=== PATIENT | female | born 1995 | race African-American/Black ===

== ENCOUNTER 2016-09-20 22:33 | Emergency (ER) | payer SELFPAY ==
[~2016-09-20] VITALS: Ht 170.2 cm; Wt 74.4 kg
[~2016-09-20 22:33] MED LIST: AMOXICILLIN500 MG PO; CIPRO500 MG OR; CIPRO500 MG PO; CORTISPORIN OP7.5 ML OP; IRON325 MG PO; NO CURRENT MEDS; PRE-NATAL PO; TAM75CAP PO; TYLENOL325 MG OR; ULTRAM50 M1 PO
[2016-09-21] MEDS ORDERED: ULTRAM50 M1 PO (00:31)
[2016-09-21 00:52] VITALS: BP 131/78
== END 2016-09-21 00:52 | disposition home or self-care (01) | DRG 914 ==
LOC: ED 22:33
PROC: 2W3KX1Z Immobilization of Left Finger using Splint (ICD-10-PCS; principal; 2016-09-20)
DX: S69.92XA Unspecified injury of left wrist, hand and finger(s), initial encounter (principal); W18.39XA Other fall on same level, initial encounter; Y93.89 Activity, other specified; Y92.009 Unspecified place in unspecified non-institutional (private) residence as the place of occurrence of the external cause

== ENCOUNTER 2017-05-19 21:37 | Emergency (ER) | payer SELFPAY ==
[~2017-05-19] VITALS: Ht 170.2 cm; Wt 66.0 kg
[2017-05-19 22:20] LABS: URINE BILIRUBIN - DIPSTICK NEGATIVE (NEGATIVE); URINE BLOOD DIPSTICK LARGE (NEGATIVE); URINE COLOR YELLOW; URINE GLUCOSE - DIPSTICK NEGATIVE (NEGATIVE); URINE KETONE NEGATIVE (NEGATIVE); URINE NITRITE - DIPSTICK NEGATIVE (Negative); URINE PROTEIN - DIPSTICK 100 mg/dL (NEG-TRACE); URINE SPECIFIC GRAVITY 1.025; URINE UROBILINOGEN - DIPSTICK 0.2 E.U./dL (0.2)
[2017-05-19 22:22] LABS: URINE CLARITY CLOUDY; URINE LEUK ESTERASE MODERATE (NEGATIVE)
[2017-05-19 22:33] LABS: URINE WBC 50-100 WBC/hpf (0-5)
[2017-05-19 22:34] LABS: URINE RENAL EPITHELIAL CELLS FEW hpf
[2017-05-19] MEDS ORDERED: CIPROFLOXACN500 MG PO (22:47)
[2017-05-19] MEDS ORDERED: PYRIDIUM200 MG PO (22:47)
[2017-05-19 23:10] VITALS: BP 132/63
== END 2017-05-19 23:32 | disposition home or self-care (01) | DRG 690 ==
LOC: ED 21:37
PROVIDERS: Emergency Medicine
DX: N39.0 Urinary tract infection, site not specified (principal); B96.20 Unspecified Escherichia coli [E. coli] as the cause of diseases classified elsewhere; R10.2 Pelvic and perineal pain; R30.0 Dysuria

== ENCOUNTER 2017-09-10 04:48 | Emergency (ER) | payer OTHER ==
[~2017-09-10] VITALS: Ht 170.2 cm; Wt 75.6 kg
[~2017-09-10 04:48] MED LIST changes: +CIPROFLOXACN500 MG PO; +PYRIDIUM200 MG PO
[2017-09-10 05:36] LABS: URINE BILIRUBIN - DIPSTICK NEGATIVE (NEGATIVE); URINE BLOOD DIPSTICK NEGATIVE (NEGATIVE); URINE COLOR YELLOW; URINE GLUCOSE - DIPSTICK NEGATIVE (NEGATIVE); URINE KETONE NEGATIVE (NEGATIVE); URINE LEUK ESTERASE NEGATIVE (NEGATIVE); URINE NITRITE - DIPSTICK NEGATIVE (Negative); URINE PROTEIN - DIPSTICK NEGATIVE (NEG-TRACE)
[2017-09-10 05:37] LABS: URINE CLARITY SL CLOUDY
[2017-09-10] MEDS ORDERED: NAPROSYN500 MG PO (06:26)
[2017-09-10 06:39] VITALS: BP 115/70
== END 2017-09-10 06:40 | disposition home or self-care (01) | DRG 552 ==
LOC: ED 04:48
PROVIDERS: Emergency Medicine
DX: S33.5XXA Sprain of ligaments of lumbar spine, initial encounter (principal); S43.402A Unspecified sprain of left shoulder joint, initial encounter; V89.2XXA Person injured in unspecified motor-vehicle accident, traffic, initial encounter

== ENCOUNTER 2018-02-18 23:01 | Emergency (ER) | payer BC ==
[~2018-02-18] VITALS: Ht 170.2 cm; Wt 70.0 kg
[~2018-02-18 23:01] MED LIST changes: +NAPROSYN500 MG PO
[2018-02-18 23:51] LABS: HEMATOCRIT 35.7 % (37.0-47.0); HEMOGLOBIN 11.6 g/dl (12.0-16.0); IMMATURE GRANULOCYTES 0.2 % (0.0-5.0); MEAN CELL VOLUME 92.5 fL CALC (80.0-100.0); MEAN CORPUSCULAR HGB 30.1 pG CALC (26.0-32.0); MEAN CORPUSCULAR HGB CONC 32.5 g/L CALC (32.0-36.0); NEUT# 1.73 thou/uL (2.00-7.15); RED BLOOD COUNT 3.86 mill/uL (4.20-5.60); RED CELL DISTRI WIDTH 12.1 % (11.5-15.5)
[2018-02-18 23:53] LABS: URINE BILIRUBIN - DIPSTICK NEGATIVE (NEGATIVE); URINE BLOOD DIPSTICK NEGATIVE (NEGATIVE); URINE COLOR YELLOW; URINE GLUCOSE - DIPSTICK NEGATIVE (NEGATIVE); URINE KETONE NEGATIVE (NEGATIVE); URINE NITRITE - DIPSTICK NEGATIVE (Negative); URINE PH 6.5 (4.5-8.0); URINE PROTEIN - DIPSTICK NEGATIVE (NEG-TRACE); URINE UROBILINOGEN - DIPSTICK 0.2 E.U./dL (0.2)
[2018-02-18 23:57] LABS: URINE CLARITY TURBID; URINE LEUK ESTERASE SMALL (NEGATIVE)
[2018-02-18 23:58] LABS: BARBITURATES NEGATIVE (NEGATIVE); COCAINE NEGATIVE (NEGATIVE); METHADONE NEGATIVE (NEGATIVE); OXCYCODONE NEGATIVE (NEGATIVE); TETRAHYDROCANNABIONOL NEGATIVE (NEGATIVE); TRICYLIC ANTIDEPRESSANTS NEGATIVE (NEGATIVE)
[2018-02-19 00:08] LABS: ALBUMIN 4.1 g/dL (3.2-5.0); ANION GAP 14 (6-22 (CALC)); BILIRUBIN, TOTAL 0.6 mg/dL (0.0-1.4); BUN 9 mg/dL (7-17); BUN/CREATININE RATIO 12 (12-20 (CALC)); CARBON DIOXIDE 27 mmol/l (22-30); CHLORIDE 105 mmol/l (95-108); CREATININE 0.7 mg/dL (0.5-1.0); GFR > 60 ML/MIN (>=60 (CALC)); GFR FOR AFR.AMER. > 60 ML/MIN (>=60 (CALC)); POTASSIUM 3.9 mmol/l (3.5-5.1); SGOT/AST 15 u/l (14-36); SGPT/ALT 20 u/l (9-52); SODIUM 142 mmol/l (137-146); TOTAL PROTEIN 7.2 g/dL (6.3-8.2)
[2018-02-19 00:17] LABS: ALKALINE PHOSPHATASE 33 u/l (38-126)
[2018-02-19 00:23] LABS: URINE EPITHELIAL CELLS FEW EPI/hpf (0-FEW); URINE TRICHOMONAS FEW hpf; URINE WBC 50-100 WBC/hpf (0-5)
[2018-02-19 00:25] LABS: URINE BACTERIA MODERATE hpf
[2018-02-19] MEDS ORDERED: ANTIVERT PO (01:08)
[2018-02-19] MEDS ORDERED: METRONIDAZOL500 MG PO (01:08)
[2018-02-19] MEDS ORDERED: CIPROFLOXACN500 MG PO (01:08)
[2018-02-19 01:29] VITALS: BP 114/59
== END 2018-02-19 01:28 | disposition home or self-care (01) | DRG 149 ==
LOC: ED 23:01
PROVIDERS: Emergency Medicine
DX: R42 Dizziness and giddiness (principal); N39.0 Urinary tract infection, site not specified; A59.9 Trichomoniasis, unspecified

== ENCOUNTER 2018-05-26 23:13 | Emergency (ER) | payer BC ==
[~2018-05-26] VITALS: Ht 170.2 cm; Wt 73.0 kg
[~2018-05-26 23:13] MED LIST changes: +ANTIVERT PO; +METRONIDAZOL500 MG PO
[2018-05-27] MEDS ORDERED: AMOXICILLIN500 MG PO (01:32)
[2018-05-27 02:05] VITALS: BP 118/70
== END 2018-05-27 02:05 | disposition home or self-care (01) | DRG 153 ==
LOC: ED 23:13
DX: J02.0 Streptococcal pharyngitis (principal); R11.10 Vomiting, unspecified

== ENCOUNTER 2018-10-16 19:37 | Emergency (ER) | payer OTHER ==
[~2018-10-16] VITALS: Ht 170.2 cm; Wt 73.0 kg
[2018-10-16 22:45] VITALS: BP 124/62
== END 2018-10-16 22:50 | disposition home or self-care (01) | DRG 605 ==
LOC: ED 19:37
DX: S00.03XA Contusion of scalp, initial encounter (principal); R51 Headache; R11.0 Nausea; W22.09XA Striking against other stationary object, initial encounter; Y92.007 Garden or yard of unspecified non-institutional (private) residence as the place of occurrence of the external cause

== ENCOUNTER 2019-08-11 16:29 | Emergency (ER) | payer OTHER ==
[2019-08-11] MEDS ORDERED: PRENATA4 PO (16:53)
[2019-08-11] MEDS ORDERED: ACYCLOVIR800 MG PO (18:00)
[2019-08-11] MEDS ORDERED: BACTROBAN TOP (18:00)
[2019-08-11 18:07] VITALS: BP 128/50
== END 2019-08-11 18:29 | disposition home or self-care (01) ==
LOC: ED 16:29
DX: O98.519 Other viral diseases complicating pregnancy, unspecified trimester (principal); B02.9 Zoster without complications; Z3A.00 Weeks of gestation of pregnancy not specified

== ENCOUNTER 2020-07-07 19:12 | Emergency (ER) | payer OTHER ==
[~2020-07-07] VITALS: Ht 170.2 cm; Wt 97.0 kg
[~2020-07-07 19:12] MED LIST changes: +ACYCLOVIR800 MG PO; +BACTROBAN TOP; +PRENATA4 PO
[2020-07-08] MEDS ORDERED: AMOXICILLIN500 M2 PO (00:42)
[2020-07-08 00:43] VITALS: BP 119/76
== END 2020-07-08 00:43 | disposition home or self-care (01) ==
LOC: ED 19:12
DX: S09.21XA Traumatic rupture of right ear drum, initial encounter (principal); W18.39XA Other fall on same level, initial encounter; Y93.44 Activity, trampolining; Y92.009 Unspecified place in unspecified non-institutional (private) residence as the place of occurrence of the external cause

== ENCOUNTER 2020-10-24 19:15 | Emergency (ER) | payer BC, OTHER ==
[~2020-10-24 19:15] MED LIST changes: +AMOXICILLIN500 M2 PO
[2020-10-24 19:30] VITALS: BP 142/72
[2020-10-24] MEDS ORDERED: MOTRIN400 MG/TAB PO (21:09)
== END 2020-10-24 22:10 | disposition home or self-care (01) | DRG 563 ==
LOC: ED 19:15
DX: S93.601A Unspecified sprain of right foot, initial encounter (principal); S93.401A Sprain of unspecified ligament of right ankle, initial encounter; X50.0XXA Overexertion from strenuous movement or load, initial encounter; Y93.89 Activity, other specified; Y92.002 Bathroom of unspecified non-institutional (private) residence as the place of occurrence of the external cause

== ENCOUNTER 2021-03-02 14:36 | Emergency (ER) | payer BC, OTHER ==
[~2021-03-02] VITALS: Ht 170.2 cm; Wt 100.0 kg
[~2021-03-02 14:36] MED LIST changes: +MOTRIN400 MG/TAB PO
[2021-03-02] MEDS ORDERED: ULTRAM50 MG PO (16:33)
[2021-03-02 16:50] VITALS: BP 125/59
== END 2021-03-02 16:50 | disposition home or self-care (01) | DRG 103 ==
LOC: ED 14:36
DX: G43.909 Migraine, unspecified, not intractable, without status migrainosus (principal); K21.9 Gastro-esophageal reflux disease without esophagitis; Z20.822 Contact with and (suspected) exposure to COVID-19

== ENCOUNTER 2021-06-19 20:55 | Emergency (ER) | payer BC, OTHER ==
[~2021-06-19] VITALS: Ht 170.2 cm; Wt 86.3 kg
[~2021-06-19 20:55] MED LIST changes: +ULTRAM50 MG PO
[2021-06-19] MEDS ORDERED: NAPROXEN500 MG PO (23:01)
[2021-06-19] MEDS ORDERED: AMOXICILLIN500 MG PO (23:01)
[2021-06-20 00:32] VITALS: BP 127/88
== END 2021-06-20 00:52 | disposition home or self-care (01) | DRG 603 ==
LOC: ED 20:55
DX: L03.115 Cellulitis of right lower limb (principal)

== ENCOUNTER 2022-09-14 02:27 | Emergency (ER) | payer OTHER, BC ==
[~2022-09-14] VITALS: Ht 170.2 cm; Wt 95.0 kg
[~2022-09-14 02:27] MED LIST changes: +NAPROXEN500 MG PO
[2022-09-14 03:35] VITALS: BP 114/70
== END 2022-09-14 04:35 | disposition home or self-care (01) | DRG 605 ==
LOC: ED 02:27
DX: S90.31XA Contusion of right foot, initial encounter (principal); S61.511A Laceration without foreign body of right wrist, initial encounter; V03.90XA Pedestrian on foot injured in collision with car, pick-up truck or van, unspecified whether traffic or nontraffic accident, initial encounter

== ENCOUNTER 2022-10-26 11:43 | Emergency (ER) | payer BC, OTHER ==
[~2022-10-26] VITALS: Ht 170.2 cm; Wt 95.0 kg
[2022-10-26 12:23] VITALS: BP 129/73
[2022-10-26 12:30] VITALS: BP 114/75
[2022-10-26 13:00] VITALS: BP 109/80
[2022-10-26] MEDS ORDERED: ZPAK PO (13:11)
[2022-10-26] MEDS ORDERED: MEDDOSEPAK PO (13:11)
[2022-10-26 13:30] VITALS: BP 108/74
[2022-10-26] MEDS ORDERED: FIORICET PO (13:37)
== END 2022-10-26 13:43 | disposition home or self-care (01) | DRG 153 ==
LOC: ED 11:43
DX: J06.9 Acute upper respiratory infection, unspecified (principal); Z20.822 Contact with and (suspected) exposure to COVID-19

== ENCOUNTER 2022-12-20 13:27 | Emergency (ER) | payer BC, OTHER ==
[2022-12-20] VITALS (8 sets, daily range): BP systolic 105–128; BP diastolic 54–86
[~2022-12-20] VITALS: Ht 170.2 cm; Wt 90.7 kg
[~2022-12-20 13:27] MED LIST changes: +FIORICET PO; +MEDDOSEPAK PO; +ZPAK PO
[2022-12-20] MEDS ORDERED: IBUPROFEN600 MG PO (16:21)
== END 2022-12-20 16:32 | disposition home or self-care (01) | DRG 556 ==
LOC: ED 13:27
DX: M25.561 Pain in right knee (principal); M79.671 Pain in right foot

== ENCOUNTER 2024-09-23 12:30 | Emergency (ER) | payer OTHER, BC ==
[~2024-09-23] VITALS: Ht 170.2 cm; Wt 98.0 kg
[~2024-09-23 12:30] MED LIST changes: +IBUPROFEN600 MG PO
[2024-09-23 12:58] VITALS: BP 144/87
[2024-09-23 13:00] VITALS: BP 124/78
[2024-09-23] MEDS ORDERED: KETOROLAC TROMETHAMINE 30 MG/ML SDV IM ONE (13:15)
[2024-09-23 14:05] LABS: EOS% 1.8 % (0-8); HEMATOCRIT 37.4 % (37.0-47.0); HEMOGLOBIN 11.8 g/dl (12.0-16.0); LYMPH% 39.8 % (15-41); MEAN CELL VOLUME 92.1 fL CALC (80.0-100.0); MEAN CORPUSCULAR HGB 29.1 pG CALC (26.0-32.0); MEAN CORPUSCULAR HGB CONC 31.6 g/dL CAL (32.0-36.0); NEUT# 1.73 thou/uL (2.00-7.15); NEUT% 45.4 % (42-76); RED BLOOD COUNT 4.06 mill/uL (4.20-5.60); RED CELL DISTRI WIDTH 12.5 % (11.5-15.5)
[2024-09-23 14:16] LABS: ALBUMIN 4.2 g/dL (3.2-5.0); BILIRUBIN, TOTAL 0.7 mg/dL (0.02-1.3); CREATININE 0.7 mg/dL (0.5-1.0); POTASSIUM 3.9 mmol/l (3.5-5.1); TOTAL PROTEIN 7.7 g/dL (6.3-8.2)
[2024-09-23 15:51] VITALS: BP 124/78
== END 2024-09-23 16:00 | disposition home or self-care (01) | DRG 999 ==
LOC: ED 12:30
PROVIDERS: Family Medicine
DX: S16.1XXA Strain of muscle, fascia and tendon at neck level, initial encounter (principal); S06.9X1A Unspecified intracranial injury with loss of consciousness of 30 minutes or less, initial encounter; M54.50 Low back pain, unspecified; V43.52XA Car driver injured in collision with other type car in traffic accident, initial encounter
CPT/HCPCS: Q9967